=== PATIENT | male | born 2000 | race Caucasian/White ===

== ENCOUNTER 2022-07-11 11:23 | Day surgery (SDC) | payer OTHER, SELFPAY ==
[2022-07-11] VITALS (7 sets, daily range): BP systolic 113–133; BP diastolic 68–93; PULSE 67–82; RESP 16–18; TEMP 36.5–36.6; O2SAT 99–100; BMI 19.0
[2022-07-11] MEDS: Lactated Ringers 1,000 ML 15 ML IV ×2 (12:04→14:00)
--- NOTE | 2022-07-11 12:05 | RAD_ITS ---
INDICATION: FX EXAMINATION/TECHNIQUE: X-RAY - LEFT XR Hand Min 3 Views 5 VIEWS COMPARISON: None. FINDINGS: Fluoroscopy time 22.6 seconds. Fluoroscopy dose 0.55 mGy 4 spot fluoroscopic images were obtained intraoperatively. Plate and screws visualized internally fixating the third metatarsal bone. Bone fragments in near anatomic alignment. No radiologist was present for the procedure, please refer to operative report for details. RAD/Hand Min 3 Views IMPRESSION: Please refer to operative report for details. Electronically Signed: Benjamin Goodwin MD at 16:44 EDT ,
[2022-07-11] MEDS: Cefazolin 1 GM/50 ML BAG IV (12:56)
--- NOTE | 2022-07-11 14:36 | DCINST_ITS ---
Discharge Instructions Follow Up Care Test Results: Test results from this visit will be discussed in further detail at your follow- up appointment, if applicable. Discharge Plan Admission Primary Reason for Your Visit: Left hand surgery Attending Provider: Pablito Brito Primary Care Provider: Care Physician,Wilda Primary Instructions Additional Instructions / Restrictions: Follow preprinted instructions from your surgeons office. Discharge Orders/Prescriptions Prescriptions: No Action NK Referrals / Follow Up: Pablito Brito DO [Med Staff - Active Staff] - Within 2 Weeks Care Physician,No Primary [Primary Care Provider] - Disposition Disposition (needs filled in before D/C Order can be placed): Home, Self Care
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
[2022-07-11] MEDS: Ketorolac 15 MG/ML Vial IV (15:53)
[2022-07-11] MEDS: oxyCODONE 5 MG Tablet PO (16:05)
[2022-07-11] MEDS: Acetaminophen 500 MG Tablet 1000 MG PO (16:05)
== END 2022-07-11 16:41 | disposition home or self-care (01) ==
LOC: SDC 11:25 → AC 11:26
PROVIDERS: Referring Provider Student in an Organized Health Care Education/Training Program; Visit Provider Student in an Organized Health Care Education/Training Program
PROC: (CPT 26615; principal; 2022-07-11 12:50)
DX: S62.333A Displaced fracture of neck of third metacarpal bone, left hand, initial encounter for closed fracture (principal); V86.99XA Unspecified occupant of other special all-terrain or other off-road motor vehicle injured in nontraffic accident, initial encounter; F17.210 Nicotine dependence, cigarettes, uncomplicated
CPT/HCPCS: 26615; 01830; 73130; 76000; C1776; J7120; J2405